=== PATIENT | male | born 1965 ===

== ENCOUNTER 2017-11-29 15:12 | Emergency (ER) | payer BC ==
[2017-11-29 16:11] VITALS: BP 119/91
--- NOTE | 2017-11-29 17:19 | UC ---
Abdominal Pain Male HPI - HPI Summary HPI Summary: Patient experienced sudden onset of left low back pain then the pain radiated around into his abdomen pain at its worst was an 8 out of 10 pain is now about a 3 out of 10. Patient has never had similar pain in this patient has noticed that his urine today was dark brown. Patient denies fevers chills nausea vomiting. Patient denies pain or burning with urination - History of Current Complaint Chief Complaint: UCBackPain Stated Complaint: LOWER BACK PAIN L SIDE Time Seen by Provider: 11/29/17 17:18 Hx Obtained From: Patient Onset/Duration: Sudden Onset, Lasting Hours Timing: Constant Severity Initially: Moderate Severity Currently: Moderate Pain Intensity: 5 Pain Scale Used: 0-10 Numeric Location: Discrete At: LLQ Radiates: Yes Radiates to: Flank Character: Cramping Aggravating Factor(s): Nothing Alleviating Factor(s): Spontaneous Resolution Associated Signs And Symptoms: Positive: Back Pain - Allergies/Home Medications Allergies/Adverse Reactions: Allergies Allergy/AdvReac Type Severity Reaction Status Date / Time No Known Allergies Allergy Verified 11/29/17 16:11 Home Medications: Home Medications NK [No Home Medications Reported] 11/29/17 [History Confirmed 11/29/17] PMH/Surg Hx/FS Hx/Imm Hx Previously Healthy: Yes - Surgical History Surgical History: None - Family History Known Family History: Positive: None - Social History Occupation: Employed Full-time Lives: With Family Alcohol Use: None Substance Use Type: None Smoking Status (MU): Never Smoked Tobacco Review of Systems Constitutional: Negative Skin: Negative Eyes: Negative ENT: Negative Respiratory: Negative Cardiovascular: Negative Gastrointestinal: Negative, Other Genitourinary: Negative Motor: Negative Neurovascular: Negative Musculoskeletal: Negative Neurological: Negative Psychological: Negative Is Patient Immunocompromised?: No All Other Systems Reviewed And Are Negative: Yes Physical Exam Triage Information Reviewed: Yes Appearance: Well-Appearing, No Pain Distress, Well-Nourished Vital Signs: Initial Vital Signs Temp 97.5 F 11/29/17 16:06 Pulse 73 11/29/17 16:06 Resp 18 11/29/17 16:06 BP 119/91 11/29/17 16:06 Pulse Ox 99 11/29/17 16:06 Vital Signs Reviewed: Yes Eye Exam: Normal Eyes: Positive: Conjunctiva Clear ENT Exam: Normal ENT: Positive: Normal ENT inspection, Hearing grossly normal. Negative: Trismus , Muffled voice, Hoarse voice Dental Exam: Normal Neck exam: Normal Neck: Positive: Supple, Nontender, No Lymphadenopathy Respiratory Exam: Normal Respiratory: Positive: Chest non-tender, No respiratory distress, No accessory muscle use Cardiovascular Exam: Normal Cardiovascular: Positive: RRR, Pulses Normal, Brisk Capillary Refill Abdominal Exam: Normal Abdomen Description: Positive: Nontender, No Organomegaly, Soft, CVA Tenderness (L). Negative: CVA Tenderness (R), McBurney's Point Tenderness, Peritoneal Signs Bowel Sounds: Positive: Present Musculoskeletal Exam: Normal Musculoskeletal: Positive: Strength Intact, ROM Intact, No Edema Neurological Exam: Normal Neurological: Positive: Alert, Muscle Tone Normal Psychological Exam: Normal Skin Exam: Normal Diagnostics - Laboratory Diagnostic Studies Completed/Ordered: ua-+3 blood Abd Pain Male Course/Dx - Course Course Of Treatment: Patient remain nothing by mouth to the emergency department for further evaluation of flank pain. will be driving - Differential Dx/Clinical Impression Provider Diagnoses: Left flank pain with hematuria Discharge - Sign-Out/Discharge Documenting (check all that apply): Discharge - Discharge Plan Condition: Stable Disposition: HOME Discharge Disposition Comment: 2 [facility] emergency department Patient Education Materials: Renal Colic (ED), Hematuria (ED) Referrals: Jersey Milligan MD [Primary Care Provider] - If Needed Additional Instructions: Please go directly to the [facility] emergency department for further evaluation and care of left flank pain and hematuria - Billing Disposition and Condition Condition: STABLE Disposition: HOME
== END 2017-11-29 17:48 | disposition home or self-care (01) ==
LOC: UCEAST 15:12
DX: R10.32 Left lower quadrant pain (principal); R31.9 Hematuria, unspecified; M54.5 Low back pain
CPT/HCPCS: 81003; 99202; G0463